=== PATIENT | female | born 1995 | race Caucasian/White ===

== ENCOUNTER 2020-03-28 18:21 | Emergency (ER) | payer BC, OTHER ==
[2020-03-28 18:45] VITALS: BP 133/80; TEMP 98.4; O2SAT 99
[2020-03-28] MEDS ORDERED: TETANUS,DIPHTHERIA,PERTUSSIS 1 EA SYG IM ONE (18:52)
[2020-03-28] MEDS ORDERED: SULFA/TRIMETH 800/160 (DS) TAB 1 EA TAB PO ONE (18:52)
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
== END 2020-03-28 19:07 | disposition home or self-care (01) ==
LOC: ER 18:21
DX: S61.011A Laceration without foreign body of right thumb without damage to nail, initial encounter (principal); W22.8XXA Striking against or struck by other objects, initial encounter; Y92.9 Unspecified place or not applicable